=== PATIENT | female | born 1970 | race Caucasian/White ===

== ENCOUNTER 2017-03-11 11:57 | Emergency (ER) | payer OTHER ==
--- NOTE | 2017-03-11 12:49 | UC ---
Hand/Wrist HPI - HPI Summary HPI Summary: Pt presents with right thumb pain. She tells me that earlier today she slammed her right thumb into the basurto of her on accident. Has never injured this hand/ thumb before. Denies numbness, tingling, loss of sensation, or decreased ROM. Has been icing the thumb since time of injury. - History Of Current Complaint Chief Complaint: UCUpperExtremity Stated Complaint: THUMB INJURY Time Seen by Provider: 03/11/17 12:48 Hx Obtained From: Patient Hx Last Menstrual Period: hyster ?: No Onset/Duration: Sudden Onset Severity Initially: Moderate Severity Currently: Moderate Pain Intensity: 5 Pain Scale Used: 0-10 Numeric Character Of Pain: Dull, Aching, Throbbing Aggravating Factor(s): Movement, Extension Alleviating Factor(s): Rest, Ice - Allergies/Home Medications Allergies/Adverse Reactions: Allergies Allergy/AdvReac Type Severity Reaction Status Date / Time Penicillins [PCN] Allergy hive Verified 03/11/17 12:08 Home Medications: Home Medications Spironolactone (NF) [Spironolactone 50 MG (NF)] 100 mg PO BID 03/11/17 [History Confirmed 03/11/17] PMH/Surg Hx/FS Hx/Imm Hx Previously Healthy: Yes - Surgical History Surgical History: Yes Surgery Procedure, Year, and Place: hyster,c/sec,bunioectomy septoplasty - Social History Occupation: Employed Full-time Lives: With Family Alcohol Use: None Substance Use Type: None Smoking Status (MU): Former Smoker Review of Systems Constitutional: Negative Skin: Bruising - Overlying right thumb Respiratory: Negative Cardiovascular: Negative Neurovascular: Negative Musculoskeletal: Other: - Pain right thumb Neurological: Negative All Other Systems Reviewed And Are Negative: Yes Physical Exam Triage Information Reviewed: Yes Appearance: Well-Appearing, No Pain Distress, Well-Nourished Vital Signs: Initial Vital Signs Temp 97 F 03/11/17 12:10 Pulse 83 03/11/17 12:10 Resp 17 03/11/17 12:10 Pulse Ox 100 03/11/17 12:10 Vital Signs Reviewed: Yes Respiratory: Positive: Chest non-tender, Lungs clear, Normal breath sounds Cardiovascular: Positive: RRR, No Murmur, Pulses Normal, Brisk Capillary Refill - Right thumb Musculoskeletal: Positive: Strength Intact - Right thumb, ROM Intact - Right thumb including opposition, Edema @ - right thumb - mild, Other: - TTP over MCP joint dorsal right thumb. Mild overlying ecchymosis in this area. NTTP snuffbox or elsewhere on thumb. No obvious bony deformities Neurological: Positive: Alert, Other: - Sensations intact right hand and all fingers Psychological: Positive: Age Appropriate Behavior Hand/Wrist Course/Dx - Course Course Of Treatment: Thumb XR: Nondisplaced fracture distal phalanx of the right thumb. I am suspicious of this XR result given no exam findings to support this location of injury. Pt's ecchymosis and pain is near the MCP. I will place her in a thumb spica splint and have her follow up with orthopedics as soon as possible. - Differential Dx/Diagnosis Differential Diagnosis/HQI/PQRI: Contusion, Dislocation, Fracture, Sprain, Strain Provider Diagnoses: Nondisplaced fracture distal phalanx of the right thumb. Right thumb contusion Discharge - Discharge Plan Condition: Stable Disposition: HOME Patient Education Materials: Thumb Fracture (ED) Referrals: Deven Tadeo NP [Primary Care Provider] - Nova Oh MD [Medical Doctor] - As Soon As Possible Additional Instructions: If you develop a fever, shortness of breath, chest pain, new or worsening symptoms - please call your PCP or go to the ED. 1) Please keep your thumb in the splint until your appointment with orthopedics. 2) Please call orthopedics at the number below to schedule a follow up appointment as soon as possible. 3) May take OTC tylenol or ibuprofen for pain/discomfort. Rest, ice, and elevate your hand to reduce pain and swelling.
--- NOTE | 2017-03-11 13:11 | RAD ---
Indication: Right thumb pain. 3 views of the right thumb demonstrates linear lucency in the distal phalanx of the right thumb consistent with nondisplaced fracture. No dislocation is noted. IMPRESSION: Nondisplaced fracture distal phalanx of the right thumb.
== END 2017-03-11 13:26 | disposition home or self-care (01) ==
LOC: UCEAST 11:57
DX: S62.521A Displaced fracture of distal phalanx of right thumb, initial encounter for closed fracture (principal); Z87.891 Personal history of nicotine dependence; Z88.0 Allergy status to penicillin; W22.8XXA Striking against or struck by other objects, initial encounter; Y92.9 Unspecified place or not applicable
CPT/HCPCS: 99211; G0463